=== PATIENT | female | born 1950 | race Caucasian/White ===

== ENCOUNTER 2025-07-21 12:01 | Outpatient (CLI) | payer MEDICARE, SELFPAY ==
--- NOTE | 2025-07-21 12:30 | ECG_ITS ---
Test Date: 2025-07-21 12:14:40 Measurements Intervals [place] Rate: 87 P: 76 DC: 182 QRS: 21 QRSD: 97 T: 66 QT: 348 QTc: 419 Interpretive Statements SINUS RHYTHM No previous ECG available for comparison Electronically Signed On 07-21-2025 13:23:46 SKIN CARE SPECIALIST by Cristobal Pascual M.D.
--- OUTSIDE RECORDS SUMMARY | 2025-07-21 13:24 | XMS_ITS | Encounter Summary ---
Author Organization [facility] Care Team Providers Care Grout Machine Tender Name Role Phone Pk Melendez MD Primary Care Provider [phone] Encounter Details Date Type Department Care Team (Latest Contact Info) Description 05/17/2018 Orders Only [facility] CLINCONV ProviderBrandon MD [address] [place] [id number] Social History Tobacco Use Types Packs/Day Years Used Date Smoking Tobacco: Never Assessed Comments Unknown Sex and Gender Information Value Date Recorded Sex Assigned at Not on file Legal Sex Female 7:15 PM CDT Gender Identity Not on file Sexual Orientation Not on file documented as of this encounter Functional Status documented as of this encounter Plan of Treatment Not on file documented as of this encounter Procedures Procedure Name Priority Date/Time Associated Diagnosis Comments SCAN - LABS 05/22/2018 12:00 AM CDT documented in this encounter Results * SCAN - LABS (05/22/2018 12:00 AM CDT) Narrative 05/22/2018 12:00 AM CDT Ordered by an unspecified provider. 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
--- OUTSIDE RECORDS SUMMARY | 2025-07-21 13:24 | XMS_ITS | Encounter Summary ---
Author Organization [facility] Care Team Providers Care Elementary Education Teacher Name Role Phone Pk Melendez MD Primary Care Provider [phone] Encounter Details Date Type Department Care Team (Latest Contact Info) Description 09/19/2017 Orders Only [facility] CLINCONV ProviderBrandon MD [address] [place] [id number] Social History Tobacco Use Types Packs/Day Years Used Date Smoking Tobacco: Never Assessed Comments Unknown Sex and Gender Information Value Date Recorded Sex Assigned at Not on file Legal Sex Female 7:15 PM CDT Gender Identity Not on file Sexual Orientation Not on file documented as of this encounter Plan of Treatment Not on file documented as of this encounter Procedures Procedure Name Priority Date/Time Associated Diagnosis Comments SCAN - LABS 09/26/2017 12:00 AM BUSINESS RELATIONS MANAGER documented in this encounter Results * SCAN - LABS (09/26/2017 12:00 AM BUSINESS RELATIONS MANAGER) Narrative 09/26/2017 12:00 AM BUSINESS RELATIONS MANAGER Ordered by an unspecified provider. us Historical Provider Final Res ult documented in this encounter Visit Diagnoses Not on filedocumented in this encounter Additional Health Concerns Infection Onset Date Last Indicated Resolved Time COVID: Suspected 10/16/2022 10/16/2022 10/16/2022 2:17 PM BUSINESS RELATIONS MANAGER documented as of this encounter Care Teams Elementary Education Teacher Relationship Specialty Start Date End Date Pk Melendez MD [address] [place] [id number] PCP - General Internal Medicine 11/29/18 documented as of this encounter
--- OUTSIDE RECORDS SUMMARY | 2025-07-21 13:24 | XMS_ITS | Clinical Summary ---
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 before breakfast Active ergocalciferol, vitamin D2, (VITAMIN D2 ORAL) Take by mouth Active albuterol HFA (PROVENTIL HFA,VENTOLIN HFA,PROAIR HFA) 90 mcg/actuation inhaler Inhale 2 puffs every 6 (six) hours as needed for wheezing 1 each 3 4 Active mirtazapine (REMERON) 15 mg tablet Take 1 tablet (15 mg total) by mouth nightly 30 tablet 2 4 Active lisinopriL (PRINIVIL,ZESTRI L) 10 mg tablet Take 1 tablet by mouth once daily 90 tablet 5 Active ipratropium-albu teroL (DUO-NEB) 0.5-2.5 mg/3 mL nebulizer solutionIndicati ons:Chronic obstructive pulmonary disease, unspecified COPD type (HCC) USE 1 AMPULE IN NEBULIZER EVERY 6 HOURS 360 mL 5 5 Active hydrocortisone (ANUSOL-HC) 2.5 % rectal cream Insert into the rectum 4 (four) times a day as needed for hemorrhoids (rectal discomfort) Apply to affected areas 30 g 1 5 Active hydrOXYzine (VISTARIL) 25 mg capsule Take 1 capsule by mouth once daily 100 capsule 1 5 Active Active Problems Problem Noted Date Diagnosed Date Internal hemorrhoid 06/10/2025 Assessment & Plan (06/10/2025 11:42 AM CDT): Patient with chronic painful internal hemorrhoids. Will start her on Anusol cream 3-4 times daily PRN and will make a referral to see a general surgeon for further evaluation Lung cancer screening declined by patient 2023 Assessment & Plan (06/10/2025 7:14 AM CDT): Patient is due for lung cancer screening. Patient declined. She understands risks including cancer. Assessment & Plan (02/10/2025 10:21 AM CDT): Patient is due for lung cancer screening. Patient declined. She understands risks including cancer. Assessment & Plan (10/14/2024 7:33 AM MATRIX PLATER): Patient is due for lung cancer screening. Patient declined. She understands risks including cancer. Assessment & Plan (04/06/2024 7:30 AM CDT): Patient is due for lung cancer screening. Patient declined. She understands risks including cancer. Assessment & Plan (12/04/2023 10:27 AM CDT): Patient is due for lung cancer screening. Patient declined. She understands risks including cancer. Primary insomnia 05/02/2023 Assessment & Plan (10/14/2024 11:59 AM MATRIX PLATER): Controlled on Remeron Assessment & Plan (06/25/2024 10:52 AM CDT): Patient with primary insomnia. Patient has difficulty sleeping at night. She takes naps in the daytime. We discussed the importance of sleep hygiene and avoid naps in the daytime. Advised to avoid caffeine. Advised to avoid food late at night. Will start her on Remeron 15 mg q.h.s.. Assessment & Plan (05/02/2023 12:31 PM CDT): Patient takes hydroxyzine with good results. Panic disorder 03/28/2023 Assessment & Plan (03/28/2023 12:52 PM CDT): Panic disorder d/t extreme grief. Xanax 0.25 prn ordered. Pt provided resources for senior counseling services. Pt denies SI/HI Grief 03/28/2023 Assessment & Plan (03/28/2023 12:53 PM CDT): Severe grief since passing of her . Educated on need for counseling. Provided resources. Acute bronchitis 01/24/2023 Assessment & Plan (01/24/2023 11:42 AM CDT): Patient with acute bronchitis on top of COPD. We will start her on doxycycline 100 mg b.i.d. for 10 days and Medrol Dosepak. She received Kenalog 40 mg IM. Patient will continue to use nebulizer treatment. Senile osteoporosis 01/23/2023 Assessment & Plan (10/14/2024 7:33 AM MATRIX PLATER): Patient declined to take medications. Advised to take calcium and vitamin-D daily Assessment & Plan (04/06/2024 7:30 AM CDT): Patient declined to take medications. Advised to take calcium and vitamin-D daily Assessment & Plan (12/04/2023 7:58 AM CDT): Patient declined to take medications. Advised to take calcium and vitamin-D daily Assessment & Plan (08/05/2023 7:58 AM MATRIX PLATER): Patient declined to take medications. Advised to take calcium and vitamin-D daily Assessment & Plan (05/02/2023 12:30 PM CDT): The patient stopped Fosamax. She does not want to take any medications for osteoporosis. She understand that she is at high risk for fracture. She understands that it is her responsibility to follow the instructions. She was advised to take calcium 500 mg daily and vitamin-D 2000 units daily. Assessment & Plan (01/24/2023 11:42 AM CDT): Continue Fosamax weekly with calcium and vitamin-D daily Colon cancer screening 09/17/2022 Assessment & Plan (04/06/2024 7:30 AM CDT): Colonoscopy in April 2021 showed internal hemorrhoids status post ligation and repeat colonoscopy in 5 years. Procedure was performed by Dr. Celeste Assessment & Plan (09/17/2022 8:10 AM MATRIX PLATER): Colonoscopy in April 2021 showed internal hemorrhoids status post ligation and repeat colonoscopy in 5 years. Procedure was performed by Dr. Celeste Chronic right shoulder pain 09/17/2022 Assessment & Plan (09/17/2022 12:36 PM MATRIX PLATER): Patient with persistent right shoulder pain for the last 3 months. She has limited range of motion in all directions. It is possible that she has frozen shoulder. Will make a referral to see orthopedic doctor. She does not want pain medications and does not want physical therapy. Screening for lung cancer 09/17/2022 Assessment & Plan (12/04/2023 10:27 AM CDT): Lung scan in July 2023 showed pulmonary nodules. Patient is due for repeated lung scan but she declined and she understands risks including cancer Assessment & Plan (09/17/2022 12:37 PM MATRIX PLATER): Patient has an appointment for CT lung screen BMI 21.0-21.9, adult 04/18/2021 Rectal bleeding 03/23/2021 Assessment & Plan (03/23/2021 3:00 PM CDT): Patient will try preparation H for possible hemorrhoids and we made her a referral to see a human anatomy teacher and she was advised strongly to keep her follow-up appointment for further evaluation and colonoscopy Preoperative clearance 12/22/2020 Assessment & Plan (12/22/2020 5:08 PM CDT): Patient is cleared for cataract extraction Tobacco use 06/27/2020 Assessment & Plan (06/10/2025 7:14 AM CDT): Discussed smoking cessation and different methods to help with that. Discussed the risks of smoking including COPD, CAD and lung cancer etc. Total time spent was 5 minutes. Assessment & Plan (02/10/2025 7:32 AM CDT): Discussed smoking cessation and different methods to help with that. Discussed the risks of smoking including COPD, CAD and lung cancer etc. Total time spent was 5 minutes. Assessment & Plan (10/14/2024 7:33 AM MATRIX PLATER): Discussed smoking cessation and different methods to help with that. Discussed the risks of smoking including COPD, CAD and lung cancer etc. Total time spent was 5 minutes. Assessment & Plan (04/06/2024 7:30 AM CDT): Discussed smoking cessation and different methods to help with that. Discussed the risks of smoking including COPD, CAD and lung cancer etc. Total time spent was 5 minutes. Assessment & Plan (12/04/2023 7:58 AM CDT): Discussed smoking cessation and different methods to help with that. Discussed the risks of smoking including COPD, CAD and lung cancer etc. Total time spent was 5 minutes. Assessment & Plan (08/05/2023 7:56 AM MATRIX PLATER): Discussed smoking cessation and different methods to help with that. Discussed the risks of smoking including COPD, CAD and lung cancer etc. Total time spent was 3 minutes. Assessment & Plan (05/02/2023 12:30 PM CDT): Discussed smoking cessation and different methods to help with that. Discussed the risks of smoking including COPD, CAD and lung cancer etc. Total time spent was 3 minutes. Assessment & Plan (01/24/2023 11:43 AM CDT): Patient said that she smokes 10 cigarettes daily. Discussed the importance of complete smoking cessation. She understands risks including COPD and lung cancer etc.. Patient is not interested in medications at this time. Assessment & Plan (09/17/2022 8:09 AM MATRIX PLATER): Discussed smoking cessation and different methods to help with that. Discussed the risks of smoking including COPD, CAD and lung cancer etc. Total time spent was 3 minutes. Assessment & Plan (01/17/2022 11:47 AM CDT): Discussed smoking cessation and different methods to help with that. Discussed the risks of smoking including COPD, CAD and lung cancer etc. Total time spent was 3 minutes. Assessment & Plan (10/18/2021 11:52 AM MATRIX PLATER): Discussed smoking cessation and different methods to help with that. Discussed the risks of smoking including COPD, CAD and lung cancer etc. Total time spent was 4 minutes. Assessment & Plan (06/22/2021 1:26 PM CDT): Discussed smoking cessation and different methods to help with that. Discussed the risks of smoking including COPD, CAD and lung cancer etc. Total time spent was 3 minutes. Assessment & Plan (03/23/2021 2:59 PM CDT): Discussed smoking cessation and different methods to help with that. Discussed the risks of smoking including COPD, CAD and lung cancer etc. patient does not want to try medications. Total time spent was 3 minutes. Assessment & Plan (12/22/2020 5:07 PM CDT): Discussed smoking cessation and different methods to help with that. Discussed the risks of smoking including COPD, CAD and lung cancer etc. Total time spent was 4 minutes. Assessment & Plan (06/27/2020 2:34 PM CDT): Discussed smoking cessation and different methods to help with that. Discussed the risks of smoking including COPD, CAD and lung cancer etc. Total time spent was 4 minutes. Personal history of nicotine dependence 06/11/20 19 Assessment & Plan (06/11/2019 4:11 PM CDT): Discussed smoking cessation and different methods to help with that. Discussed the risks of smoking including COPD, CAD and lung cancer etc. Total time spent was [address] lung screen with low-dose iodine and we discussed the benefits and the risk of the procedure. The patient smokes 1-2 packs daily for over 40 years. Patient likes to proceed with the test. Acute deep vein thrombosis ( DVT) of distal vein of right lower extremity 03/11/2019 Assessment & Plan (06/11/2019 4:09 PM CDT): The patient has DVT after right hip fracture about 3 months ago. She is on Xarelto for 3 months. The patient is ambulatory and she is asymptomatic with no leg pain or swelling. The patient can stop Xarelto and she was advised to stay active and ambulate on regular basis. The patient to call for leg pain or swelling. Assessment & Plan (03/11/2019 1:42 PM CDT): The patient with acute DVT of the right leg after recent surgery. She will continue Xarelto for about 3 months and we will start her on Xarelto 20 mg daily after she is done with the starter dose of 15 mg twice a day for 21 days Closed fracture of right hip with routine healin g 03/11/2019 Assessment & Plan (03/11/2019 1:42 PM CDT): Status post open reduction and external rotation Uncomplicated alcohol dependence 05/22/2018 Assessment & Plan (02/10/2025 7:32 AM CDT): Patient said that she quit drinking alcohol in February 2022 Assessment & Plan (05/21/2022 11:12 AM CDT): Patient said that she quit drinking alcohol in February 2022 Assessment & Plan (01/17/2022 11:46 AM CDT): Patient cut down on drinking alcohol significantly. She said she drinks 1 or 2 beers daily. Discussed complete cessation. Discussed programs to help with alcohol cessation Assessment & Plan (10/18/2021 11:52 AM MATRIX PLATER): Discussed complete cessation Assessment & Plan (06/22/2021 1:26 PM CDT): Discussed alcohol abstinence and different methods to help with that. The patient was advised to seek help from AA and other alcohol abstinence programs. The patient understands the risks of alcoholism including liver disease and cancer etc. Assessment & Plan (03/23/2021 2:58 PM CDT): Discussed alcohol abstinence and different methods to help with that. The patient was advised to seek help from AA and other alcohol abstinence programs. The patient understands the risks of alcoholism including liver disease and cancer etc. Assessment & Plan (06/27/2020 2:34 PM CDT): Patient drinks alcohol on occasional basis Assessment & Plan (06/11/2019 4:07 PM CDT): The patient said that she drinks beer on occasional basis Assessment & Plan (03/11/2019 1:40 PM CDT): The patient stated that she does not drink alcohol any more Pulmonary nodule, right 05/22/2018 Assessment & Plan (08/05/2023 7:59 AM MATRIX PLATER): Lung scan in July 2023 he is not changed from previous scan and repeat in 6 months Assessment & Plan (05/02/2023 12:30 PM CDT): Lung scan in April 2023 showed persistent right pulmonary nodule. Will repeat the scan in 3 months Assessment & Plan (01/24/2023 11:42 AM CDT): CT of the lungs in January 2023 showed 8 mm pulmonary nodule and will repeat CT in 3 months Assessment & Plan (09/17/2022 12:38 PM MATRIX PLATER): CT in June 2021 showed no change in pulmonary nodule and she has an appointment for repeated lung screen Assessment & Plan (05/21/2022 11:12 AM CDT): Repeat CT lung screen Assessment & Plan (01/17/2022 11:46 AM CDT): Stable pulmonary nodule on CT in June 2021 Assessment & Plan (10/18/2021 11:52 AM MATRIX PLATER): Stable pulmonary nodule on CT lung screen in June 2021 and repeat on annual basis Assessment & Plan (06/22/2021 1:27 PM CDT): Patient will have repeated CT lung screen in June 2021 Assessment & Plan (03/23/2021 2:58 PM CDT): Stable pulmonary nodule on CT lung screen in June 2020 Assessment & Plan (06/27/2020 2:33 PM CDT): CT lung screen in June 2020 showed moderate emphysema and no change in pulmonary nodule Assessment & Plan (03/10/2020 10:48 AM CDT): CT lung screen in June 2019 showed pulmonary nodule and she needs repeated test in June 2020. Discussed with the patient Assessment & Plan (10/06/2019 12:15 PM MATRIX PLATER): CT lung screen in June 2019 showed pulmonary nodules and will repeat the test in 1 year Assessment & Plan (03/11/2019 1:41 PM CDT): The patient has pulmonary nodule and we will continue to monitor with CT scan of the lungs Acute systolic congestive heart failure 05/22/20 18 COPD exacerbation 05/22/2018 Current mild episode of tania r depressive disorder without prior episode 08/13/2017 Assessment & Plan (02/10/2025 7:31 AM CDT): Stable without medications Assessment & Plan (04/06/2024 7:30 AM CDT): Stable without medications Assessment & Plan (09/17/2022 8:08 AM MATRIX PLATER): Stable without medications Assessment & Plan (01/17/2022 11:46 AM CDT): Patient is in remission and stable without medications Assessment & Plan (03/23/2021 2:59 PM CDT): Patient is in remission and stable without medications Assessment & Plan (03/10/2020 10:47 AM CDT): Stable without medications Assessment & Plan (10/06/2019 12:14 PM MATRIX PLATER): Stable without medications and she takes Xanax as needed for anxiety Assessment & Plan (06/11/2019 4:07 PM CDT): Stable without medications Assessment & Plan (03/11/2019 1:41 PM CDT): The patient does not take medications and she denied depression or suicidal ideations RLS (restless legs syndrome) 04/16/2017 Assessment & Plan (02/10/2025 7:31 AM CDT): Asymptomatic and stable without medications Assessment & Plan (10/14/2024 7:33 AM MATRIX PLATER): Asymptomatic and stable without medications Assessment & Plan (01/17/2022 11:46 AM CDT): Asymptomatic and stable without medications Assessment & Plan (10/18/2021 11:52 AM MATRIX PLATER): Asymptomatic Assessment & Plan (06/27/2020 1:17 PM CDT): Asymptomatic Assessment & Plan (06/11/2019 4:07 PM CDT): Stable without medications Osteoarthritis of knee 04/16/2017 Hypertension, essential 04/16/2017 Assessment & Plan (06/10/2025 7:14 AM CDT): Continue current medications. Discussed low-salt diet. Discussed exercise on regular basis. Will continue to monitor Assessment & Plan (02/10/2025 7:31 AM CDT): Continue current medications. Discussed low-salt diet. Discussed exercise on regular basis. Will continue to monitor Assessment & Plan (10/14/2024 7:33 AM MATRIX PLATER): Continue current medications. Discussed low-salt diet. Discussed exercise on regular basis. Will continue to monitor Assessment & Plan (06/25/2024 10:52 AM CDT): Continue current medications. Discussed low-salt diet. Discussed exercise on regular basis. Will continue to monitor Assessment & Plan (04/06/2024 7:30 AM CDT): Continue current medications. Discussed low-salt diet. Discussed exercise on regular basis. Will continue to monitor Assessment & Plan (12/04/2023 7:58 AM CDT): Continue current medications. Discussed low-salt diet. Discussed exercise on regular basis. Will continue to monitor Assessment & Plan (08/05/2023 7:59 AM MATRIX PLATER): Continue current medications. Discussed low-salt diet. Discussed exercise on regular basis. Will continue to monitor Assessment & Plan (05/02/2023 12:31 PM CDT): Continue current medications. Discussed low-salt diet. Discussed exercise on regular basis. Will continue to monitor Assessment & Plan (09/17/2022 8:08 AM MATRIX PLATER): Continue current medications. Discussed low-salt diet. Discussed exercise on regular basis. Will continue to monitor Assessment & Plan (05/21/2022 11:15 AM CDT): Continue current medications. Discussed low-salt diet. Discussed exercise on regular basis. Will continue to monitor Assessment & Plan (01/17/2022 11:46 AM CDT): Continue current medications. Discussed low-salt diet. Discussed exercise on regular basis. Will continue to monitor Assessment & Plan (10/18/2021 11:52 AM MATRIX PLATER): Continue current medications. Discussed low-salt diet. Discussed exercise on regular basis. Will continue to monitor Assessment & Plan (06/22/2021 1:26 PM CDT): Continue current medications. Discussed low-salt diet. Discussed exercise on regular basis. Will continue to monitor Assessment & Plan (03/23/2021 2:58 PM CDT): Continue current medications. Discussed low-salt diet. Discussed exercise on regular basis. Will continue to monitor Assessment & Plan (12/22/2020 5:08 PM CDT): Continue current medications. Discussed low-salt diet. Discussed exercise on regular basis. Will continue to monitor Assessment & Plan (06/27/2020 2:33 PM CDT): Continue current medications. Discussed low-salt diet. Discussed exercise on regular basis. Will continue to monitor Assessment & Plan (03/10/2020 10:47 AM CDT): Continue current medications. Discussed low-salt diet. Discussed exercise on regular basis. Will continue to monitor Assessment & Plan (10/06/2019 12:14 PM MATRIX PLATER): Continue current medications. Discussed low-salt diet. Discussed exercise on regular basis. Will continue to monitor Assessment & Plan (06/11/2019 4:07 PM CDT): Continue current medications. Discussed low-salt diet. Discussed exercise on regular basis. Will continue to monitor Assessment & Plan (03/11/2019 1:41 PM CDT): Continue current medications. Discussed low-salt diet. Discussed exercise on regular basis. Will continue to monitor COPD (chronic obstructive pulmonary disease) 04/2017 Assessment & Plan (06/10/2025 7:13 AM CDT): Continue nebulizer treatment p.r.n. Assessment & Plan (02/10/2025 7:31 AM CDT): Continue nebulizer treatment p.r.n. Assessment & Plan (06/25/2024 10:51 AM CDT): Continue nebulizer treatment p.r.n. Assessment & Plan (04/06/2024 7:30 AM CDT): Continue nebulizer treatment p.r.n. Assessment & Plan (12/04/2023 7:59 AM CDT): Continue nebulizer treatment p.r.n. Assessment & Plan (08/05/2023 7:59 AM MATRIX PLATER): Continue nebulizer treatment p.r.n. Assessment & Plan (06/27/2023 4:29 PM CDT): Continue nebulizer treatment p.r.n. Assessment & Plan (05/02/2023 12:31 PM CDT): Patient declined inhalers because of cost. She uses nebulizer treatment in the form of albuterol and Atrovent as needed Assessment & Plan (01/24/2023 11:42 AM CDT): Patient declined inhalers because of cost. She uses nebulizer treatment in the form of albuterol and Atrovent as needed Assessment & Plan (10/16/2022 3:09 PM MATRIX PLATER): Patient with COPD exacerbation. We discussed the importance of complete smoking cessation. She smokes currently 10 cigarettes daily. Continue nebulizer treatment 4 times daily. Will start her on doxycycline 100 mg b.i.d. for 7 days and Medrol Dosepak and Benzonate 200 mg 3 times daily p.r.n.. Call for persistent symptoms Assessment & Plan (09/17/2022 8:08 AM MATRIX PLATER): Continue albuterol and ipratropium nebulizer treatment as needed Assessment & Plan (05/21/2022 11:12 AM CDT): Patient uses Atrovent and albuterol nebulizer as needed with good relief Assessment & Plan (01/17/2022 11:46 AM CDT): Continue nebulizer treatment as needed Assessment & Plan (10/18/2021 11:53 AM MATRIX PLATER): The patient uses albuterol and Atrovent nebulizer treatment as needed Assessment & Plan (06/22/2021 1:26 PM CDT): Asymptomatic Assessment & Plan (03/23/2021 2:59 PM CDT): Patient uses DuoNeb on as needed basis Assessment & Plan (12/22/2020 5:07 PM CDT): Asymptomatic Assessment & Plan (06/27/2020 4:17 PM CDT): The patient will receive nebulizer treatment now. She will continue with the nebulizer treatment 4 times daily as needed. She received 40 mg Kenalog IM. We discussed smoking cessation again. After nebulizer treatment patient felt better and lung examination was clear Assessment & Plan (03/10/2020 10:48 AM CDT): Continue Atrovent and albuterol nebulizer p.r.n. Assessment & Plan (10/06/2019 12:14 PM MATRIX PLATER): Continue nebulizer treatment as needed Assessment & Plan (06/11/2019 4:08 PM CDT): We will add Trelegy 1 puff daily and patient was advised to rinse her mouth after each use. Will continue to monitor with next visit Assessment & Plan (03/11/2019 1:41 PM CDT): The patient uses duo nebulizer treatment on as needed basis Anxiety 04/16/2017 Assessment & Plan (06/10/2025 7:13 AM CDT): Controlled on Vistaril Assessment & Plan (10/14/2024 7:33 AM MATRIX PLATER): Controlled on Vistaril Assessment & Plan (06/25/2024 10:51 AM CDT): Controlled on Vistaril Assessment & Plan (04/06/2024 10:27 AM CDT): Patient takes hydroxyzine and Xanax p.r.n. with good results Assessment & Plan (12/04/2023 7:57 AM CDT): Patient takes hydroxyzine and Xanax p.r.n. with good results Assessment & Plan (08/05/2023 10:24 AM MATRIX PLATER): Patient stopped Celexa because of nausea. Patient said that she does not need this medication. She continues to take hydroxyzine and Xanax as needed Assessment & Plan (06/27/2023 4:29 PM CDT): Patient with increased anxiety and panic attacks after the passing of her . She is maintained on hydroxyzine and alprazolam. I recommended that she seeks counseling. Will start her on Celexa 20 mg daily. Will evaluate her again in 1 month. Assessment & Plan (05/02/2023 12:29 PM CDT): Patient is on Xanax p.r.n.. She could not tolerate other medications like Paxil or Lexapro. She refused to try other medications. Assessment & Plan (05/21/2022 11:12 AM CDT): Controlled on hydroxyzine Assessment & Plan (01/17/2022 11:47 AM CDT): Controlled on hydroxyzine Assessment & Plan (10/18/2021 11:53 AM MATRIX PLATER): Controlled on Atarax daily Assessment & Plan (06/22/2021 1:26 PM CDT): Patient will take hydroxyzine on as needed basis. She has good relief with that Assessment & Plan (03/23/2021 2:59 PM CDT): Controlled on Xanax p.r.n. Assessment & Plan (12/22/2020 5:07 PM CDT): Controlled on Xanax p.r.n. Assessment & Plan (06/27/2020 2:32 PM CDT): The patient said that she has panic attack today but usually she does not have anxiety attacks. She is not on medications at this time. Assessment & Plan (03/10/2020 10:48 AM CDT): Stable without medications Assessment & Plan (10/06/2019 12:14 PM MATRIX PLATER): Continue Xanax as needed Assessment & Plan (06/11/2019 4:08 PM CDT): Continue alprazolam p.r.n. Pain in thoracic spine 04/16/2017 Other chronic pain 04/16/2017 Resolved Problems Problem Noted Date Diagnosed Date Resolved Date Poison lance 04/18/2021 05/21/2022 Encounters Date Type Department Care Team Description 07/07/2025 Telephone [facility] Medical [facility] Internal Medicine [address] [place] [address] [place] [id number] Pk Melendez MD Medical Question/Miscellaneous (General Surgery Referral) 06/10/2025 9:15 AM CDT Office Visit [facility] Internal Medicine [address] [place] [address] [address] [place] [phone] Pk Melendez MD Simple chronic bronchitis (HCC) (Primary Dx); Lung cancer screening declined by patient; Hypertension, essential; Anxiety; Tobacco use; Internal hemorrhoid; Encounter for immunization from Last 3 Months Immunizations Immunization Administration Dates Next Due Influenza, Quadrivalent, Hig h Dose, Preservative Free, Intrr 06/21/2023,06/28/2022,06/22/2021,06/27 Influenza, Trivalent, High D ose, Split, Preservative Free, Intramuscular 06/10/2025,06/16/2024,06/11/2019 Pfizer SARS-CoV-2 Monovalent Vaccination (12+ Yrs) PURPLE 01/19/2022,11/27/2020,11/04/2020 Pneumococcal Conjugate PCV 13 05/30/2018 Pneumococcal Conjugate Pcv20 06/21/2023 Pneumococcal Polysaccharide PPV23 05/14/2017 Surgical History Surgery Date Site/Laterality Comments HIP FRACTURE SURGERY 11/07/2018 - 12/07/2018 Right CATARACT EXTRACTION, BILATERAL 09/09/2020 - 09/08/2021 Medical History Medical History Date Comments Anxiety COPD (chronic obstructive pulmonary disease) OA (osteoarthritis) of knee HTN (hypertension) RLS (restless legs syndrome) CHF (congestive heart failure) (HCC) Depression Family History Medical History Relation Name Comments Parkinsonism Father Heart disease Mother Breast cancer Neg Hx Relation Name Status Comments Father Mother Social History Tobacco Use Types Packs/Day Years Used Date Smoking Tobacco: Every Day Cigarettes 1 56.9 Started: 1968 Passive Smoke Exposure: Current Smokeless Tobacco: Never Tobacco Cessation:Ready to Q uit: Not Asked; Counseling Given: Not Answered Comments:1/2 pack daily x 1 1/2 months Alcohol Use Standard Drinks/Week Comments Yes 0 (1 standard drink = 0.6 oz pur e alcohol) AUDIT-C Answer Date Recorded Q1: How often do you have a drink containing alcohol? Never 02/10/2025 Q2: How many drinks containi ng alcohol do you have on a typical day when you are drinking? Patient does not drink Q3: How often do you have si x or more drinks on one occasion? Never 02/10/2025 PHQ-2 Answer Date Recorded PHQ-2 Total Score (If total score is 3 or more points, staff should administer the PHQ-9) 0 10/14/2024 Comments No Sex and Gender Information Value Date Recorded Sex Assigned at Not on file Legal Sex Female 7:15 PM CDT Gender Identity Not on file Sexual Orientation Not on file Obstetrics History Para Term AB IAB SAB Ectopic Multiple Livin g Live Births 3 3 3 Date Outcome GA Total Labor Labor/2nd/3rd Weight Sex Type Anes PTL Dedra A1 A5 Name Clin Term Term Term Last Filed Vital Signs Vital Sign Reading Time Taken Comments Blood Pressure 122/68 06/10/2025 8:55 AM CDT Pulse 91 06/10/2025 8:55 AM CDT Temperature 36.6 C (97.9 F) 06/10/2025 8:55 AM CDT Respiratory Rate 16 06/10/2025 8:55 AM CDT Oxygen Saturation 96% 06/10/2025 8:55 AM CDT Inhaled Oxygen Concentration - - Weight 52.9 kg (116 lb 9.6 oz) 06/10/2025 8:55 A M CDT Height 162.6 cm (5' 4) 06/10/2025 8:55 AM CDT Body Mass Index 20.01 06/10/2025 8:55 AM CDT Plan of Treatment Health Maintenance Due Date Last Done Comments Hepatitis B Screening 1968 Well Visit 65+ 2014 Covid-19 Vaccine (2024-10 6 season) 2025 01/19/2022, 01/19/2022, 06/21/2021, Additional history exists Depression Screening 10/14/2025 10/14/2024, 06/25/2024, 04/06/2024, Additional history exists Fall Risk Assessment 10/14/2025 10/14/2024, 06/25/2024, 04/06/2024, Additional history exists Colon Cancer Screening-Colonoscopy 05/01/2026 05/01/2021 Colon Cancer Screening-CT Colonography Discontinued 05/01/2021 Colon Cancer Screening-Sigmoidoscopy Discontinued 05/01/2021 Colon Cancer Screening-DNA Stool Discontinued 05/02/2021, 05/01/2021, 09/09/2018 Colon Cancer Screening-FIT Discontinued 05/02, 05/01/2021, 09/09/2018 Osteoporosis Screening-Bone Density Scan Discontinued 01/23/2022 Pneumococcal vaccine 65+ Completed 023, 05/30/2018, 05/14/2017 Lung Cancer Screening Discontinued 08/03/2023 , 04/25/2023, 01/21/2023, Additional history exists Breast Cancer Screening-Mammogram Discontinued 12/26/2023, 01/23/2022, 05/10/2018, Additional history exists Hepatitis C Screening Completed 12/26/2023 Influenza Vaccine Completed 06/10/2025, , 06/21/2023, Additional history exists DTaP/Tdap/Td Vaccine Discontinued Zoster Vaccine Discontinued Procedures Procedure Name Priority Date/Time Associated Diagnosis Comments HEPATITIS C ANTIBODY Routine 12/26/2023 8:15 AM CDT Encounter for hepatitis C screening test for low risk patient SCREENING MAMMOGRAM BILATERAL W DANE Schedule Routine, Read Routine (OP Routine) 12/26/2023 7:48 AM CDT Breast cancer screening by mammogram CT CHEST WO CONTRAST F/U LUNG SCREEN PROTOCOL Schedule Routine, Read Routine (OP Routine) 08/03/2023 10:49 AM MATRIX PLATER Pulmonary nodule HM DEXA SCAN Routine 01/23/2022 COLONOSCOPY Routine 05/01/2021 from Last 3 Months or Most Recently Relevant to Health Maintenance Results * Hepatitis C antibody Blood (12/26/2023 8:15 AM CDT) Hep C Ab Nonreactive Nonreactive Comment: Antibodies to HCV not detected. Does NOT exclude the possibility of recent exposure to HCV. Current interpretive data was last revised on 22 Interpretive Data Nonreactive: Antibodies to HCV not detected. Does NOT exclude the possibility of recent exposure to HCV. Equivocal: Equivocal for HCV antibodies. Supplemental molecular testing will be automatically performed to determine infection status in accordance with current CDC screening recommendations. Reactive: Positive for HCV antibodies. This may represent current or past HCV infection. Supplemental molecular testing will be automatically performed to determine current infection status in accordance with current CDC screening recommendations. Interpretive data was last revised on 2019. Blood 12/26/2023 8:15 AM CDT 12/26/2023 12:46 PM CDT us Pk Melendez MD LAB MICROBIOLOGY - GENERAL ORDERABLES Final Result [facility] [address] [facility] Department [place] [address] * Screening Mammogram Bilateral W Dane (12/26/2023 7:48 AM CDT) Anatomical Region Laterality Modality Breast Bilateral Mammography Impressions 12/26/2023 8:50 AM CDT BI-RADS ATLAS category (overall): 1 - Negative There is no mammographic evidence of malignancy on limited assessment (see above). A 1 year screening mammogram is recommended. The patient has been or will be contacted. We recommend annual screening mammography for women at average risk of breast cancer beginning at age 40, based on guidelines of the [employer] (ACR Practice Parameter for the Performance of Screening and Diagnostic Mammography) and [employer]. For women with and elevated risk of breast cancer, please refer to the ACR Practice Parameter for specific screening recommendations. The patient will be entered into a reminder system with a target due date of 1 year for her next screening exam. Narrative 12/26/2023 8:50 AM CDT Screening Mammogram Bilateral W Dane: 12/26/23 The study was acquired using full field digital technology and interpreted from soft copy. 2D digital mammographic views, as well as 3D digital tomosynthesis were performed in the CC and MLO projections. CLINICAL: Breast cancer screening by mammogram. No relevant medical history has been documented for this patient. History of breast cancer in Neg Hx. COMPARISONS: 05/13/2018 Screening Mammogram Bilateral W Dane 05/03/2017 Screening Mammogram Bilateral W Dane BREAST TISSUE: The breasts are extremely dense, which lowers the sensitivity of mammography. FINDINGS: Suboptimal examination secondary to difficulty with patient positioning related to the patient's physical condition (kyphosis) and intolerance of compression. Within these limitations, no suspicious masses, suspicious calcifications, or other suspicious findings are seen within either breast. There has been no definite suspicious change on mammogram. Pk Melendez MD IMG MAMMO PROCEDURES Final Result * CT Chest WO Contrast F/U Lung Screen Protocol (08/03/2023 10:49 AM MATRIX PLATER) Anatomical Region Laterality Modality Chest N/A Computed Tomogra phy 08/03/2023 2:23 PM MATRIX PLATER Narrative 08/03/2023 2:33 PM MATRIX PLATER EXAM DESCRIPTION: CT CHEST WO CONTRAST F/U LUNG SCREEN PROTOCOL REASON FOR STUDY: Screening CT of the chest in a current smoker with a 54 pack year smoking history. Additional history: COPD, chronic bronchitis, hypertension, pulmonary nodule follow-up. TECHNIQUE: Low dose CT scan of the chest was performed without intravenous contrast using helical scanning technique. The exam extends from the lung apices through the lung bases. Automatic exposure control was used as a dose optimization technique. NOTE: This study was performed for the specific purposes of lung cancer screening and is not an alternative to diagnostic chest CT. RADIATION DOSE: CT dose index volume (CTDIvol) = 2.02 mGy COMPARISON: CT chest April 25, 2023, January 21, 2023, December 20, 2022 FINDINGS: SMOKING RELATED LUNG DISEASE: Bilateral pleural apical thickening/scarring. Hyperinflation. Moderate/severe emphysema. Bronchiectasis with bronchial wall thickening. LUNG NODULES: Stable right lower lobe spiculated nodule measuring 0.8 cm (series 3, image 233/349), previously 0.8 cm. In the superior segment right lower lobe is a stable noncalcified 0.5 cm pulmonary nodule (series 3, image 120/349). CORONARY ARTERY CALCIFICATION: Moderate. OTHER: Scarring in right middle lobe and lung bases. Pleural-parenchymal scarring in the right upper lobe. No airspace consolidation. No pleural effusion or pneumothorax. Central airways are patent. No cardiomegaly or pericardial effusion. No thoracic aortic aneurysm. No acute abnormality in the visualized upper abdomen. Thoracic vertebral body heights and alignment are intact. No aggressive appearing osseous lesion. IMPRESSION: Stable noncalcified pulmonary nodules unchanged from December 20, 2022 Lung-RADS category 3: Probably benign. Recommendation: Low dose CT of chest in 6 months. THIS IS AN ELECTRONICALLY VERIFIED FINAL REPORT 08/03/2023 2:33 PM - Electronically signed by Richelle Choe D.O. AC T: Report ID: [id number] Reading Location: [id number] Procedure Note Richelle Choe DO - 08/03/2023 EXAM DESCRIPTION: CT CHEST WO CONTRAST F/U LUNG SCREEN PROTOCOL REASON FOR STUDY: Screening CT of the chest in a current smoker with a54 pack year smoking history. Additional history: COPD, chronic bronchitis, hypertension, pulmonary nodule follow-up. TECHNIQUE: Low dose CT scan of the chest was performed without intravenous contrast using helical scanning technique. The exam extends from the lung apices through the lung bases. Automatic exposure control was used as adose optimization technique. NOTE: This study was performed for the specific purposes of lung cancer screening and is not an alternative to diagnostic chest CT. RADIATION DOSE: CT dose index volume (CTDIvol) = 2.02 mGy COMPARISON: CT chest April 25, 2023, January 21, 2023, December 20, 2022 FINDINGS: SMOKING RELATED LUNG DISEASE: Bilateral pleural apical thickening/scarring. Hyperinflation. Moderate/severe emphysema. Bronchiectasis with bronchial wall thickening. LUNG NODULES: Stable right lower lobe spiculated nodule measuring 0.8 cm (series 3, image 233/349), previously 0.8 cm. In the superior segment right lower lobe is a stable noncalcified 0.5 cm pulmonary nodule (series 3, image 120/349). CORONARY ARTERY CALCIFICATION: Moderate. OTHER: Scarring in right middle lobe and lung bases.Pleural-parenchymal scarring in the right upper lobe. No airspace consolidation. No pleural effusion or pneumothorax. Central airways are patent. No cardiomegaly or pericardial effusion. No thoracic aortic aneurysm. No acute abnormality in the visualized upper abdomen. Thoracic vertebral body heights and alignment are intact. No aggressive appearing osseous lesion. IMPRESSION: Stable noncalcified pulmonary nodules unchanged from 2022 Lung-RADS category 3: Probably benign. Recommendation: Low dose CT of chest in 6 months. THIS IS AN ELECTRONICALLY VERIFIED FINAL REPORT 08/03/2023 2:33 PM - Electronically signed by Richelle THORNE T: Report ID: [id number] Reading Location: [place] [id number] Pk Melendez MD [facility] CT PROCEDURES Final Res ult * (ABNORMAL) HM DEXA SCAN (01/23/2022) Scribed HM Deca Scan Abnormal Comment:osteoporosis us Historical Provider HEALTH MAINTENANCE Final Result * Colonoscopy (05/01/2021) Anatomical Region Laterality Modality Other Impressions 05/01/2021 Repeat in 5 years us Historical Provider ENDOSCOPY PROCEDURES Allison l Result from Last 3 Months or Most Recently Relevant to Health Maintenance Insurance [employer] HMO [employer] HMO Care Teams Shell Sieve Operator Relationship Specialty Start Date End Date Pk Melendez MD [id number] [facility] [address] [place] [id number] PCP - General Internal Medicine 11/29/18
--- OUTSIDE RECORDS SUMMARY | 2025-07-21 13:24 | XMS_ITS | Data Portability ---
Author Organization [facility] OFFICE Address [address] [place] [id number] Care Team Providers Care Bilingual Customer Service Name Role Phone JOSÉ LUIS ESPINOSA Primary Care Provider [phone] Assessment No assessment recorded. Plan of Treatment Reminders Order Date Submit Date Provider Last Modified By Organization Details Last Modified Time Details Appointments None recorded. Lab None recorded. Referral None recorded. Procedures None recorded. Surgeries None recorded. Imaging None recorded. Medication Orders Toprol XL 25 mg tablet,ext ended release 2018 019 [facility], [address] [place] [address], [address], 9 12:40:52 lisinopril 10 mg tablet 2018 019 [facility], [address] [place] [address], [address], 9 12:40:53 lisinopril 10 mg tablet 2017 018 [facility] [address], [address] [place] [address], [address], 8 15:47:22 carvedilol 3.125 mg tablet 2017 018 [facility] [address], [address] [place] [address], [address], 9 11:26:54 spironolac tone 25 mg tablet 2017 018 [facility], [address] [place], [address], 9 11:26:16 aspirin 81 mg tablet,del ayed release 2017 018 [facility], [address] [place], [address], 8 15:47:20 Patient TargetsNo targets recorded. Patient Instructions Encounter Date Encounter Id Patient Instructions Last Modified By Organization Details Last Modified Time 08/12/2018 [id number] deciding about using medicines to quit smoking nurbanski Not available 08/12/2018 15:49:55 Quitting Tobacco : Care Instructions nurbanski Not available 08/12/2018 15:49:55 high blood pressure: care instructions nurbanski Not available 08/12/2018 15:49:55 learning about high blood pressure nurbanski Not available 08/12/2018 15:49:55 heart failure: care instructions nurbanski Not available 08/12/2018 15:47:17 learning about heart failure nurbanski Not available 08/12/2018 15:47:17 09/24/2018 [id number] deciding about using medicines to quit smoking nurbanski Not available 09/24/2018 11:41:31 Quitting Tobacco : Care Instructions nurbanski Not available 09/24/2018 11:41:31 acute alcohol intoxication: care instructions nurbanski Not available 09/24/2018 11:41:31 high blood pressure: care instructions nurbanski Not available 09/24/2018 11:41:31 learning about high blood pressure nurbanski Not available 09/24/2018 11:41:31 chronic obstructive pulmonary disease (COPD): care instructions nurbanski Not available 09/24/2018 11:41:31 learning about copd and how to prevent lung infections nurbanski Not available 09/24/2018 11:41:31 heart failure: care instructions nurbanski Not available 09/24/2018 11:41:31 learning about heart failure nurbanski Not available 09/24/2018 11:41:31 10/29/2018 [id number] deciding about using medicines to quit smoking nurbanski Not available 10/29/2018 12:40:48 Quitting Tobacco : Care Instructions nurbanski Not available 10/29/2018 12:40:48 acute alcohol intoxication: care instructions nurbanski Not available 10/29/2018 12:40:48 high blood pressure: care instructions nurbanski Not available 10/29/2018 12:40:48 learning about high blood pressure nurbanski Not available 10/29/2018 12:40:48 chronic obstructive pulmonary disease (COPD): care instructions nurbanski Not available 10/29/2018 12:40:48 learning about copd and how to prevent lung infections nurbanski Not available 10/29/2018 12:40:48 heart failure: care instructions nurbanski Not available 10/29/2018 12:40:48 learning about heart failure nurbanski Not available 10/29/2018 12:40:48 Reason for Referral None Reported. Results Created Date Observation Date Name Description Value Unit Range Abnormal Flag Note LastModifiedBy Organization Detail LastModifiedTime 08/13/20 18 05/16/2018 XR, chest No observ ation record ed. [email or web address] Not Available 2017 10:56:40 08/13/20 18 05/17/2018 elect rocky [email or web address] am No observ ation record ed. [email or web address] Not Available 08/14 19:24:02 08/13/20 18 05/17/2018 , echoc ardio gram No observ ation record ed. [email or web address] Not Available 2017 13:20:02 08/13/20 18 05/17/2018 CT, angio gram, chest , w/wo contr ast No observ ation record ed. [email or web address] Not Available 2017 13:23:50 09/24/19 19 08/29/2018 jocy can cardi olite stres s test (PROC ) No observ ation record ed. [email or web address] Not Available 09/25 17:41:20 10/01/19 19 09/30/2018 , echoc ardio gram No observ ation record ed. [facility] [address], [place], [address], 10/16/2018 08:44:50 Result Notes None recorded. Problems Name Problem SNOMED Code Status Onset Date Resolution Date Notes Provider Name and Address Organization Details Recorded Time Dyspnea 327335280 Active 2017 [place] - [facility] 8 04:39:33 Essential hypertensio n 28137029 [facility] [place] - [facility] 8 04:40:41 Anxiety 89696162 [facility] [place] - [facility] 8 04:40:49 Depressive disorder 50096716 Active 2017 [place] - [facility] 8 04:41:02 Acute respiratory failure 14860872 [facility] [place] - [facility] 8 04:44:08 High troponin I level 442427604 Completed 201708/12/2018 [facility] [place] [facility] 8 15:48:07 Harmful pattern of use of alcohol 55233574 [facility] [place] - [facility] 8 04:44:50 Dyslipidemi a 581138729 Completed 201708/12/2018 [facility] [place] [facility] 8 15:48:00 Chronic obstructive pulmonary disease 98047360 [facility] [place] - [facility] 8 04:45:36 Congestive heart failure 84451681 Active 2017 Jus Garberi [facility], [place] - [facility] 8 15:43:40 Tobacco dependence syndrome 31931255 Active 2017 Jus Quinones [place], [place] - [facility] 8 15:49:22 Dyspnea on exertion 51769513 Active 2017 Jus [place] - [facility] 8 15:50:05 Multiple nodules of lung 780045302 Active 2017 [place] - [facility] 8 10:50:46 Problem Notes None recorded. Procedures Surgical History Date Name Laterality Status Provider Name and Address Organization Details Recorded Time Knee arthroscopy /surgery completed Marcela Victor [facility] Care 08/09/2018 09:29:39 Imaging Results None recorded. Procedure Notes None recorded. Medical Equipment None Reported. Allergies Allergen ID Allergen Name Allergen Category Reaction Reaction Severity Criticality Documentation Date Start Date Code Code System Note Provider Name and Address Organization Details Recorded Time 7132 Product containin g penicilli n (product) medicatio n Not available Not available Not available 08/12/2018 37433 8001 SNOMED Emi Oconnor [place] - [facility] 8 15:04:25 Medications Name Sig Start Date Stop Date Status Note LastModified by Organization Details LastModified Time Toprol XL 25 mg tablet,ex tended release Take 0.5 tablets every day by oral route. 2018 active Not Available Not Available Not Avai lable ipratropi um 0.5 mg-albute rol 3 mg (2.5 mg base)/3 mL nebulizat ion soln 10/29 completed Not Available Not Available Not Available clopidogr el 75 mg tablet Take 1 tablet every day by oral route. 08/12 completed Not Available Not Available Not Available aspirin 81 mg tablet,de layed release Take 1 tablet every day by oral route. 2017 active Not Available Not Available Not Avai lable spironola ctone 25 mg tablet Take 0.5 tablets every day by oral route. 09/24 completed patient not taking per patient Not Available Not Available Not Available carvedilo l 3.125 mg tablet Take 1 tablet twice a day by oral route. 09/24 completed pt does not takr Not Available Not Available Not Available alprazola m 0.25 mg tablet Take 1 tablet every 12 hours by oral route as needed. active Not Available Not Available No t Available lisinopri l 10 mg tablet Take 1 tablet every day by oral route. 2018 active Not Available Not Available Not Avai lable albuterol 90 mcg/actua tion aerosol inhaler Inhale 1 puff every 4 hours by inhalati on route. active Not Available Not Available No t Available Habitrol 14 mg/24 hr daily transderm al patch Apply 1 patch every day by transder mal route. 08/12 completed Not Available Not Available Not Available codeine-g uaifenesi n 08/12 completed Not Available Not Available Not Available hydrochlo rothiazid e 12.5 mg tablet Take 1 tablet as needed by oral route. 08/12 completed Not Available Not Available Not Available Vitals Date Recorded Body height Body mass index (BMI) Body weight Heart rate Respiratory rate Oxygen saturation Oxygen saturation in Arterial blood by Pulse oximetry Systolic And Diastolic Provider Name and Address Organization Details Last Updated DateTime 9 162.56 cm 21.5 kg/m2 58110.0 5 g 53 /min 18 /min 93 % 93 % 120/66 mm[Hg] Kellie Loera [facility] 9 11:02:26 Date Recorded Body height Body mass index (BMI) Body weight Heart rate Oxygen saturation Oxygen saturation in Arterial blood by Pulse oximetry Systolic And Diastolic Provider Name and Address Organization Details Last Updated DateTime 9 162.56 cm 22 kg/m2 63898.8 2 g 78 /min 98 % 98 % 116/80 mm[Hg] Jolly Stkimberly [facility] 9 11:47:09 Date Recorded Body height Body mass index (BMI) Body weight Heart rate Oxygen saturation Oxygen saturation in Arterial blood by Pulse oximetry Systolic And Diastolic Provider Name and Address Organization Details Last Updated DateTime 8 162.56 cm 21.6 kg/m2 41263.6 4 g 87 /min 96 % 96 % 126/80 mm[Hg] Emi Oconnor [facility] 8 15:00:38 Social History Question Answer Notes LastModified by Organizat ion Details LastModified Time Tobacco Smoking Status Current Every Day Smoker Not Available [facility] 07/12/2020 03:30:41 What Is Your Level Of Caffeine Consumption? Moderate [id number] Information not available 07/12/2020 How Much Tobacco Do You Chew? None [id number] Information not available 07/12/2020 What Type Of Diet Are You Following? REGULAR [id number] Information not available 07/12/2020 Which Illicit Or Recreational Drugs Have You Used? None [id number] Information not available 07/12/2020 Live Alone Or With Others? With Others With Spouse Information not available 08/12/2018 Marital Status [email or web address] Informatio n not available 08/12/2018 What Was The Date Of Your Most Recent Tobacco Screening? 09/24/2018 [id number] Information not available 07/12/2020 How Many Children Do You Have? 2 [id number] Information not available 07/12/2020 How Much Tobacco Do You Smoke? 3+ PPD [id number] Information not available 07/12/2020 General Stress Level Medium [email or web address] Information not available 08/12/2018 How Many Years Have You Smoked Tobacco? 45 [id number] Information not available 07/12/2020 Sex: Unknown Functional Status Question Answer Note LastModified by Organizat ion Details LastModified Time What is your level of alcohol consumption? Moderate 2-3 a day [id number] Information not available 07/12/2020 What is your occupation? retired [email or web address] Information not available 08/09/2018 What is your exercise level? None [id number] Information not available 07/12/2020 Mental Status None recorded. Family History Relationship Description Onset Age of this Age Resolved Age Notes LastModified by Organization Details LastModified Time Brother Atherosclero sis CAD nurbanski Not available 2017 15:09:04 Mother Diabetes mellitus nurbanski Not available 2017 15:09:16 Medical History Condition Response Hyperlipidemia Y Hypertension Y Depression Y COPD Y Gynecological HistoryNo gynecological history recorded. Obstetrics History GPAL:G 0 P 0 0 0 0 Past Encounters Encounter ID Performer Location Encounter Start Date Encounter Closed Date Diagnosis/Indication Diagnosis SNOMED-CT Code Diagnosis ICD10 Code Diagnosis IMO Codes Diagnosis Note [id number] MD [facility] Office [address] [address] 08/12/2018 14:23:00 08/12/2018 16:40:18 Congestive heart failure 48133895 I50.9 Discussed patient s diagnosis of heart failure with reduced ejection fraction , including pathophysi ology and prognosis. Discussed importance of controllin g blood pressure, exercising regularly, and minimizing alcohol, caffeine, and decongesta nts. Patient is on carvedilol . Patient is on an LEEANNE-I. Patient is on a diuretic. Advised patient to seek medical attention for chest pain, shortness of breath, weight gain, swelling, change in exercise capacity, fatigue, palpitatio ns, dizziness, syncope, or any other new or concerning symptoms. Patient was advised to eat a low-sodium diet (2 grams sodium or less daily), to take medication as prescribed , and to record a daily weight, reporting any 4 pound change in weight from baseline. Essential hypertension 95621899 I10 Patient's blood pressure is well-contr olled on present medical therapy. Patient is tolerating , without difficulty , the current medication s. I have not made changes to the current regimen. Patient is advised to maintain a blood pressure diary. Cont low Na diet. Tobacco de pendence syndrome 47889921 F17.200 SMOKING CESSATION ADVISED Dyspnea on exertion 6084 5006 R06.09 Patient presents with WADE which could be equivalent of angina especially in women.Give n the history, exam findings and intermedia te cardiac risk factors, I feel additional investigat ion is warranted. I have made arrangemen ts in the near future for a pharmacolo gic stress nuclear test due to reduced functional capacity or conduction abnormalit y. The procedure was discussed with the patient, and risks, benefits, and alternativ e options were explained. Appropriat e labwork has not been performed recently, therefore I have made arrangemen ts for further testing. I have asked the patient to curtail exercise and activities until our investigat ion is complete. [id number] MD [facility] Office [address] [place] [address] 09/24/2018 10:49:14 09/24/2018 11:34:01 Multiple nodules of lung 097824082 R91.8 consider pulmonary consult Tobacco de pendence syndrome 26452193 F17.200 SMOKING CESSATION ADVISED Congestive heart failure 94878223 I50.9 Discussed patient s diagnosis of heart failure with reduced ejection fraction and underlying non-ischem ic cardiomyop athy, including pathophysi ology and prognosis. Discussed importance of controllin g blood pressure, exercising regularly, and minimizing alcohol, caffeine, and decongesta nts. Patient pt stopped carvedilol . Patient is on an ELEANNE-I. Patient is on a diuretic. Advised patient to seek medical attention for chest pain, shortness of breath, weight gain, swelling, change in exercise capacity, fatigue, palpitatio ns, dizziness, syncope, or any other new or concerning symptoms. Patient was advised to eat a low-sodium diet (2 grams sodium or less daily), to take medication as prescribed , and to record a daily weight, reporting any 4 pound change in weight from baseline. Will repeat ECHO to reevaluate LV functionin 05/27 her ECHO showed LVEF 35-40%Nucl ear stress test negative for ischemia.P robably ETOH - induced CM. Chronic ob structive pulmonary disease 33801252 J44.9 Harmful pa ttern of use of alcohol 75713436 F10.10 advised to stop Essential hypertension 05945787 I10 Patient's blood pressure is well-contr olled on present medical therapy. Patient is tolerating , without difficulty , the current medication s. I have not made changes to the current regimen. Patient is advised to maintain a blood pressure diary. Cont low Na diet. [id number] MD [facility] Office [address] [place] [address] 10/29/2018 11:26:53 10/29/2018 12:38:13 Multiple nodules of lung 719191704 R91.8 consider pulmonary consult Tobacco de pendence syndrome 50175943 F17.200 SMOKING CESSATION ADVISED Congestive heart failure 33912594 I50.9 Discussed patient s diagnosis of heart failure with reduced ejection fraction and underlying non-ischem ic cardiomyop athy, including pathophysi ology and prognosis. Discussed importance of controllin g blood pressure, exercising regularly, and minimizing alcohol, caffeine, and decongesta nts. Patient pt stopped carvedilol . Patient is on an LEEANNE-I. Patient is on a diuretic. Advised patient to seek medical attention for chest pain, shortness of breath, weight gain, swelling, change in exercise capacity, fatigue, palpitatio ns, dizziness, syncope, or any other new or concerning symptoms. Patient was advised to eat a low-sodium diet (2 grams sodium or less daily), to take medication as prescribed , and to record a daily weight, reporting any 4 pound change in weight from baseline. Will repeat ECHO to reevaluate LV functionin 05/27 her ECHO showed LVEF 35-40%Nucl ear stress test negative for ischemia.r epeated echo improved LV function 45-50%add ToprolProb ably ETOH - induced CM. Chronic ob structive pulmonary disease 35706230 J44.9 Harmful pa ttern of use of alcohol 27111234 F10.10 advised to stop Essential hypertension 54526205 I10 Patient's blood pressure is well-contr olled on present medical therapy. Patient is tolerating , without difficulty , the current medication s. I have not made changes to the current regimen. Patient is advised to maintain a blood pressure diary. Cont low Na diet. Dyspnea on exertion 6084 5006 R06.09 stress test negativeco nt medical management and risk factor modificati on Health Concerns Section Related Observation LastModified by Organization Detai ls LastModified Time None Recorded Concern Status LastModified by Organization Details LastModified Time None Recorded Advance Directives Directive None Recorded Payers Insurance Date Sequence Insurance Name Policy Number Policy Muñoz Covered Member ID Muñoz Member ID Guarantor Name 03/26/2025 1 [employer] (MEDICARE REPLACEMENT/ ADVANTAGE - PPO) Penny L [facility] [id number] Penny Vice 03/26/2025 1 [employer] (MEDICARE REPLACEMENT/ ADVANTAGE - HMO) Penny L [facility] [id number] [facility] 03/26/2025 1 [place] Penny [facility] [id number] Penny Vice Notes Date Note Type Note Provider Name and Address Organization Details Recorded Time 08/12/2018 text/html 08/12/18 CC : Shortness of breath fu 67 years-old Female with h/o Hypertension , Asthma, COPD , Anxiety , and depression is here for follow up . She was in the hospital in 05/17/18 because of acute respiratory failure with elevated troponin and COPD exacerbation .her ECHO showed decreased LV systolic function. she states that generally feels fine. Still smokes and drinks ETOH.Occasionally has mild LE edema. Was started on Lisinopril per her PC but she takes it only when her BP is elevated. Denies any cardiac problems. Had stress test long time ago. BP usually runs 140/80 No known history of coronary artery disease. No history of previous myocardial infarction. No history of heart failure. No known valvular heart disease. No known arrhythmia. Patient reports feeling well overall. Patient is active, but is not exercising regularly. No chest pain. No arm pain. No neck pain. No nausea and vomiting. No diaphoresis. No shortness of breath at rest. Dyspnea on exertion reported. No fatigue.No orthopnea. No PND. Leg swelling reported. No palpitation. No dizziness. No syncope . No pre-syncope. No claudication. No major bleeding events. No side effects from medications. Complete ROS negative except as stated in the HPI and ROS. Results from this visit, or from the past: 05/19/18: na 133, K 3.5, CR 0.9, GFR 66, BNP 1248, MG 2.2 LIPIDS (05/16/18): TC 161, HDL 71, LDL 64, TG 130 CT CHEST (05/17/18): no evidence of pulmonary embolism. moderate pulmonary emphysema. few pulmonary nodules. moderate aortic atherosclerosis. mild coronary artery calcifications. ECHO (05/17/18): moderate lv systolic dysfuncton LVEF 35-40%. DIASTOLIC DYSFUNCTION EKG (05/17/18, ): NSR, IRBBB, POOR R PROGRESSION, NSST CHANGES Jus Quinones [facility] 08/12/2018 15:54:11 09/24/2018 text/html CC : Shortness of breath fu 67 years-old Female with h/o Hypertension , Asthma, COPD , Anxiety , and depression is here for follow up . Pt had diagnostic tests and today presents for review of results. She was in the hospital in 05/17/18 because of acute respiratory failure with elevated troponin and COPD exacerbation .her ECHO showed decreased LV systolic function. she states that generally feels fine. Still smokes and drinks ETOH.Occasionally has mild LE edema. Was started on Lisinopril per her PC but she takes it only when her BP is elevated. Denies any cardiac problems. Had stress test long time ago. BP usually runs 140/80 No known history of coronary artery disease. No history of previous myocardial infarction. No history of heart failure. No known valvular heart disease. No known arrhythmia. Patient reports feeling well overall. Patient is active, but is not exercising regularly. No chest pain. No arm pain. No neck pain. No nausea and vomiting. No diaphoresis. No shortness of breath at rest. Dyspnea on exertion reported. No fatigue.No orthopnea. No PND. Leg swelling reported. No palpitation. No dizziness. No syncope . No pre-syncope. No claudication. No major bleeding events. No side effects from medications. Complete ROS negative except as stated in the HPI and ROS. Results from this visit, or from the past: 05/19/18: na 133, K 3.5, CR 0.9, GFR 66, BNP 1248, MG 2.2 heparin anti-xa, plasma 05-19-2018 05/19/18: FACTOR XA HEPARIN 0.44 Attachment availableCB w/ diff 05-17-2018 05/17/18: HB 15.2, HT 45.3factor X activity, plasma [id number] (05/16/18): TC 161, HDL 71, LDL 64, TG 130 CT, angiogram, chest, w/wo contrast 05-17-2018 05/17/18 CTA CHEST: No evidence of pulmonary embolism or pneumonia. Moderate pulmonary emphysema. Few 4mm right pulmonary nodules. The patient is low risk forCT CHEST (05/17/18): no evidence of pulmonary embolism. moderate pulmonary emphysema. few pulmonary nodules. moderate aortic atherosclerosis. mild coronary artery calcifications. ECHO (05/17/18): moderate lv systolic dysfuncton LVEF 35-40%. DIASTOLIC DYSFUNCTION EKG (05/17/18, ): NSR, IRBBB, POOR R PROGRESSION, NSST CHANGESXR, chest 05-16-2018 05/16/18 CHEST 1 VIEW: No acute cardiopulmonary disease. Jus Quinones [facility] 09/24/2018 11:42:20 10/29/2018 text/html 10/29/18 CC : Shortness of breath fu 68 years-old Female with h/o Hypertension , Asthma, COPD , Anxiety , and depression is here for follow up . Pt had diagnostic tests and today presents for review of results.Had ECHO done in 09/30/18 showed EF 45-50% , LV mild global hypokinesis.She was in the hospital in 05/17/18 because of acute respiratory failure with elevated troponin and COPD exacerbation .her ECHO showed decreased LV systolic function. she states that generally feels fine. Still smokes and drinks ETOH.Occasionally has mild LE edema. Was started on Lisinopril per her PC but she takes it only when her BP is elevated. Denies any cardiac problems. Had stress test long time ago. BP usually runs 140/80 No known history of coronary artery disease. No history of previous myocardial infarction. No history of heart failure. No known valvular heart disease. No known arrhythmia. Patient reports feeling well overall. Patient is active, but is not exercising regularly. No chest pain. No arm pain. No neck pain. No nausea and vomiting. No diaphoresis. No shortness of breath at rest. Dyspnea on exertion reported. No fatigue.No orthopnea. No PND. Leg swelling reported. No palpitation. No dizziness. No syncope . No pre-syncope. No claudication. No major bleeding events. No side effects from medications. Complete ROS negative except as stated in the HPI and ROS. Results from this visit, or from the past:09/12/18: NA 141 ,K 4.3, CL 106 ,CO2 28 , GLU 99, BUN 14, CR 0.98 ,AST 17 ,IZD365: na 133, K 3.5, CR 0.9, GFR 66, BNP 1248, MG 2.209: HB 15.2, HT 45.309: TC 161 ,TG 130 ,HDL 71 ,LDL 64,heparin anti-xa, plasma 05-19-2018 05/19/18: FACTOR XA HEPARIN 0.44 CBC w/ diff 05-17-2018 05/17/18: HB 15.2, HT 45.3factor X activity, plasma [id number] (05/16/18): TC 161, HDL 71, LDL 64, TG 130 EKG: CT, angiogram, chest, w/wo contrast 05-17-2018 05/17/18 CTA CHEST: No evidence of pulmonary embolism or pneumonia. Moderate pulmonary emphysema. Few 4mm right pulmonary nodules. The patient is low risk forCT CHEST (05/17/18): no evidence of pulmonary embolism. moderate pulmonary emphysema. few pulmonary nodules. moderate aortic atherosclerosis. mild coronary artery calcifications.ECHO: 09/30/18 ECHO: LV chamber is moderately dilated. LV wall thickness is normal. There is mild global hypokinesis. The estimated left ventricle ejection fraction is 45-50%(abnormal). ECHO (05/17/18): moderate lv systolic dysfuncton LVEF 35-40%. DIASTOLIC DYSFUNCTION EKG (05/17/18, ): NSR, IRBBB, POOR R PROGRESSION, NSST CHANGESXR, chest 05-16-2018 05/16/18 CHEST 1 VIEW: No acute cardiopulmonary disease.STRESS TEST: 08/29/18 Lexiscan: Normal LV function. No reversible defects. Jus birch [place] [facility] 10/29/2018 12:42:58 OBGyn Episode No OBEpisode recorded.
--- OUTSIDE RECORDS SUMMARY | 2025-07-21 13:24 | XMS_ITS | Clinical Summary ---
Author Organization [facility] Address [address] [place] [address] Care Team Providers Care Cotton Buyer Name Role Phone Pk Melendez MD Primary Care Provider [phone] Allergies Active Allergy Reactions Criticality Noted Date Comments Penicillins Angioedema High 07/11/2012 Medications ALPRAZolam (XANAX) 1 mg Oral tablet Take 1 mg by mouth nightly as needed. Active Social History Tobacco Use Types Packs/Day Years Used Date Smoking Tobacco: Every Day Alcohol Use Standard Drinks/Week Comments No 0 (1 standard drink = 0.6 oz pur e alcohol) Comments Unknown Sex and Gender Information Value Date Recorded Sex Assigned at Not on file Legal Sex Female 6:08 AM [employer] Gender Identity Not on file Sexual Orientation Not on file Occupation Industry Job Start Date Job End Date Not on file Not on file Not on file Not on file Last Filed Vital Signs Vital Sign Reading Time Taken Comments Blood Pressure 123/64 07/11/2012 7:30 PM CDT Pulse 82 07/11/2012 6:52 PM CDT Temperature 36.2 C (97.2 F) 07/11/2012 5:50 PM CDT Respiratory Rate 16 07/11/2012 6:52 PM CDT Oxygen Saturation 94% 07/11/2012 7:30 PM CDT Inhaled Oxygen Concentration - - Weight 53.1 kg (117 lb) 07/11/2012 5:54 PM CDT Height - - Body Mass Index - - Plan of Treatment Health Maintenance Due Date Last Done Comments DTAP/TDAP/TD VACCINES (1 - Tdap) 1968 PNEUMOCOCCAL VACCINE 50+ YEARS (1 of 2 - PCV) 09/29/18 69 COLORECTAL SCREENING 1994 Colorectal Cancer Screening 1994 FIT-DNA Q 3 years 1994 FIT/FOBT Q 1 year 1994 Flex Sig/CT Colonography Q 5 years 1994 ZOSTER VACCINE (1 of 2) 1999 OSTEOPOROSIS SCREENING 2014 RSV VACCINE (60+ or ) (1 - 1-dose 75+ series) 2024 INFLUENZA VACCINE (#1) 2025 Insurance [employer] PPO [id number] Care Teams Cotton Buyer Relationship Specialty Start Date End Date Pk Melendez MD [address] [id number] PCP - General Internal Medicine 07/11/12
== END 2025-07-21 12:02 | disposition home or self-care (01) ==
LOC: ANHSURGERY 12:04
PROVIDERS: PCP Internal Medicine; Visit Provider Surgery
DX: I10 Essential (primary) hypertension (principal)
CPT/HCPCS: 93005

== ENCOUNTER 2025-07-27 02:09 | Day surgery (SDC) | payer MEDICARE, SELFPAY ==
[2025-07-19 13:33] VITALS: BMI 18.9
--- NOTE | 2025-07-19 14:00 | PC.NURSE ---
Addendum entered by Shannon Mccloud RN 07/19/25 14:13: CLARIFICATION- NO FOOD OR DRINKS AFTER MIDNIGHT PRIOR TO SURGERY ON 07/27/25. PT RELAYS UNDERSTANDING. Original Note: [facility] has started construction of its new state of the art ER which will open Spring 2026. With this, we anticipate parking may be a challenge for some our surgical patients and families. Parking spaces are limited but are available for all Surgical, obstetrics, and ER patients sharing this lot. If you arrive and find you are having a hard time finding a parking space, please note that we understand the challenges, please drive around the hospital and park near Hospital Entrance 1. When you enter this entrance, you can ask a volunteer to direct or take you back to the surgical waiting area to check in. We appreciate everyone?s understanding of these expected challenges while we build for your future. Report to the Outpatient Waiting Room, entrance under the green pavilion located off [facility], at time ___9:00AM___ on date ___07/27/25__. Planned Procedure Time: __11:00AM .? Time changes happen often and if your time is changed the preop area will call you the afternoon before. - You and your visitor will be asked to self-screen and do not enter if you have any COVID symptoms. Please call surgeon if you need to reschedule. - A mask is optional within the hospital at this time. Patients may have clear liquids (water, carbonated beverages, clear teas, apple juice) until 3 hours prior to surgery (8:00AM) with a maximum of 20 ounces. - No food from midnight until time of surgery and no smoking, or chewing tobacco (or any form of nicotine). No chewing gum, candy or mints. Take only the following medications with a SIP of water on the morning of surgery: __DUONEB NEBULIZER. DO NOT STOP ANY OF YOUR OTHER PRESCRIPTION MEDICATIONS PRIOR TO SURGERY EXCEPT THE FOLLOWING Hold all vitamins and supplements for 3 days per anesthesiologist. LAST DOSE 07/23/25 Please no make-up, nail turkish, hairspray, perfume, deodorant, or body powder the day of surgery.? No jewelry (including any body piercings) or valuables the day of surgery, leave them at home.? Please take a shower or bath the night before, or the morning of, surgery with an antibacterial soap.? Wear comfortable, loose fitting clothing.? - Jewelry must be removed prior to entering the operating room.? Rings and piercings that are not removed may be cut off. - The hospital will not accept responsibility for valuables.? - Please leave all valuables, including medications, at home the day of surgery. If you are going home after surgery, a licensed delivery driver assistant must drive you home.? - NO public transportation without another adult if you receive anesthesia. - We recommend that an adult stay with you for 24 hours following discharge. - We also recommend that you do not drive, make important decision, drink alcoholic beverages, or take any drugs that were not prescribed by your health care provider for at least 24 hours after your discharge time. Follow any additional instructions given to you from your surgeon. Telephone instructions given to ___PATIENT and asked if any additional questions and then verbalized understanding. Patient advised to call surgeon office or pre surgery nurse liaison [phone] if any additional questions.
[2025-07-27] VITALS (9 sets, daily range): BP systolic 111–156; BP diastolic 49–90; PULSE 46–92; RESP 10–20; TEMP 36.1–36.8; O2SAT 95–100
[2025-07-27] MEDS: ACETAMINOPHEN 500 MG TABLET 1000 MG PO (09:22)
[2025-07-27] MEDS: LACTATED RINGERS 1,000 ML 30 ML IV CONT (09:25)
[2025-07-27] MEDS: KETOROLAC 15 MG/ML VIAL (*BKC) IV PUSH (09:30)
--- NOTE | 2025-07-27 09:48 | WPDANESEPPF ---
Anes - Initial Pre Proc Eval Procedure: Operation Date: 07/27/25 11:00 Proposed Procedures p Rectal Examination Under Anesthesia, Possible Lateral Internal Sphincterotomy, Possible Internal / External Hemorrhoidectomy - Dmitri Lawson DO Date/Time: 07/27/25 09:48 Surgeon: Dmitri Lawson DO Pre Op Diagnosis: Rectal Pain Patient Data Age: 74 Gender: F Height: 1.63 m Weight: 50.2 kg Last Vital Signs Temp 36.8 C 07/27/25 08:55 Pulse 92 07/27/25 08:55 Resp 20 07/27/25 08:55 BP 126/71 07/27/25 08:55 Pulse Ox 95 07/27/25 08:55 O2 Del Method Room Air 07/27/25 08:55 Allergies Allergy/AdvReac Type Severity Reaction Status Date / Time Penicillins Allergy Mild Hives Verified 07/27/25 09:47 Home Medications ?Medication ?Instructions ?Recorded ?Confirmed ?Type aspirin 81 mg tablet 81 mg PO DAILY 07/16/25 07/27/25 History calcium carbonate (Calcium 600) 600 mg PO DAILY 07/16/25 07/27/25 History hydrocortisone 2.5 % topical cream 1 applic topical BID PRN skin 07/16/25 07/19/25 History irritation hydroxyzine pamoate 25 mg capsule 25 mg PO BID PRN anxiety 07/16/25 07/27/25 History (Vistaril) lisinopril 10 mg tablet 10 mg PO DAILY 07/16/25 07/27/25 History cholecalciferol (vitamin D3) 50 2,000 unit PO DAILY 07/19/25 07/27/25 History mcg (2,000 unit) capsule ipratropium 0.5 mg-albuterol 3 mg 3 ml inhalation QID 07/19/25 07/19/25 History (2.5 mg base)/3 mL nebulization soln Patient hx anesthesia problems: none Family hx anesthesia problems: none Results Review: All pre-operative results and documents have been reviewed as part of the pre-operative evaluation. [facility] Past Medical History Medical History Restless leg syndrome Osteoarthritis Hypertension Acute depression COPD (chronic obstructive pulmonary disease) Congestive heart failure Anxiety Surgical History Surgical History Hip fracture Hip fracture surgery Cataract Cataract surgery on both eyes Family History Family History Mother Heart disease Father Parkinsonism Unknown Breast cancer Social History Social History Smoking status: Current every day smoker Tobacco type: cigarettes Alcohol intake: current Anes - Eval Final PreProcedure Day of Procedure 07/27/25 09:48 Patient weight: thin Heart: regular rate and rhythm Lungs: clear to auscultation Airway: Mallampati scale class II Neurological: alert and oriented Last oral intake: >/= 8 hours ASA classification: III Emergent: no Anesthetic plan: proceed Anesthesia type and monitoring: general LMA and standard monitoring Results Review: All pre-operative results and documents have been reviewed as part of the pre-operative evaluation. Informed Consent: The patient's anesthetic plan and its attendant risks and benefits were discussed with the patient/family/POA. Questions were solicited and answers provided to the satisfaction of the patient/family/POA.
--- NOTE | 2025-07-27 10:40 | WPDHPUPDATE1 ---
History and Physical Update Update Date/Time: 07/27/25 10:40 History and Physical has been reviewed, including an updated exam of the patient. There are NO changes in the patient's condition. Risks, benefits, and alternatives have been discussed and questions answered. Patient agrees to proceed with procedure.
[2025-07-27] MEDS: ceFAZolin 2 GM in SODIUM CHLORIDE 0.9% IV 50 ML 100 ML IVPB (11:06)
[2025-07-27] MEDS: BUPivacaine HCL 0.5% 10 ML AMP 30 ML INFILTRATE (11:36)
--- NOTE | 2025-07-27 11:43 | S_PTH ---
PATIENT: Penny Vargas LOC: [facility] U#:[id number] AGE/SX: 74/F ROOM: RE07/27/[address]: Dmitri Lawson DO : 1950 BED: DIS: 07/27/2025 SPEC #: [id number] RECD: 07/27/25 12:13 STATUS: NICOLÁS REQ #: [id number] LOR: 07/27/25 11:[address]: Dmitri Lawson DEPT: [facility] Surgical RECD BY: Shima Adrian ENTERED: 07/27/25 12:13 SP TYPE: Surgical OTHR DR: Pk Melendez, Tissues: A - Hemorroid Procedures: Hematoxylin and Eosin Stain Gross and Microscopic Level 3
--- NOTE | 2025-07-27 12:58 | P.OP_ITS ---
Procedure Note - Detailed Date of Procedure 07/27/25 Pre-op Diagnosis Rectal Pain Post-op Diagnosis Other (Internal and external bleeding hemorrhoids) Procedure Performed Rectal exam under anesthesia, internal and external hemorrhoidectomy x1 column, excision residual hemorrhoid skin tag Surgeon Dmitri Lawson, DO Anesthesia General and Local (0.5% bupivacaine with epinephrine) Indications This is a 74-year-old woman who presented with rectal pain and bleeding. She had been having symptoms for the past month. She was experiencing significant tenderness on examination in the office therefore could not get a full exam to determine what the cause was. Discussed treatment options with the patient and decision was made to proceed with rectal exam under anesthesia, possible lateral internal sphincterotomy, possible hemorrhoidectomy. Findings Rectal exam under anesthesia was performed. The patient was found to have a slightly erythematous and engorged internal hemorrhoid prolapsing in the anterior midline location with some external hemorrhoid skin tag and enlarged tissue accompanying it. She also had a small posterior midline residual hemorrhoid skin tag. Internal and external hemorrhoidectomy was performed the anterior midline location and this was sent to the lab for pathology. The small posterior midline residual hemorrhoid skin tag was excised and discarded. No other coexisting pathology was identified. Description of Procedure Procedure as well as risks, benefits, and alternatives were discussed with the patient. Written consent was obtained and placed in chart prior to proce dure. Patient was brought back to surgical suite. She was placed supine on his hospital stretcher. Time-out was done to confirm patient and procedure. She was then intubated by the Anesthesia Department. She was then repositioned into prone jeyson-knife position. Her perirectal area was prepped and draped in sterile fashion using Betadine prep. Digital rectal exam was initially performed. A Hill-Delcid anoscope was then inserted and the anal rectal canal was inspected. 0.5% bupivacaine with epinephrine was infiltrated locally around the perianal skin. Hemorrhoids were identified in the anterior midline position. A Fansler anoscope was then inserted. The apex of the internal hemorrhoid bundle in the anterior midline location was ligated initially using a 2 0 chromic [id number] suture. A triangular incision was then made on the anoderm including the external hemorrhoid using a 15 blade scalpel. The hemorrhoid tissue was carefully lifted free from the sphincter muscle using sharp dissection with a 15 blade scalpel. Electrocautery was then used for hemostasis. A curved Peon clamp was then placed across the hemorrhoid bundle and the hemorrhoid tissue was cut away using Metzenbaum scissors. The 2 0 chromic suture was then run across the rectal mucosa down to the anal verge across the clamp. The suture was then run back proximally to the apex stitch with running locking sutures and the stitch was then tied down in place. The area was then irrigated with sterile saline, and hemostasis along the anoderm was achieved with electrocautery. The anoderm was then reapproximated using 3 0 chromic simple interrupted sutures. The Southold-Delcid anoscope was then reinserted and the anorectal canal was carefully inspected 1 more time circumferentially. There was a small posterior midline residual hemorrhoid skin tag. This was excised with an elliptical incision with a 15 blade scalpel. Hemostasis was achieved with electrocautery. The skin edges were then reapproximated using 3-0 chromic simple interrupted sutures. One final inspection was made around the anal rectal canal. No other abnormalities were identified, and hemostasis appeared adequate. Gelfoam gauze was then inserted into the anal canal. Fluff gauze, ABD pad, and mesh panties were applied. The patient was then awakened from anesthesia, extubated, and transferred to recovery. Estimated Blood Loss 10 Pathology Yes (Internal and external hemorrhoid) Complications No immediate complications Condition Stable Disposition Same day [facility] Billing Surgery - Charge Forward: Surgery Billing
== END 2025-07-27 13:55 | disposition home or self-care (01) ==
PROVIDERS: PCP Internal Medicine; Visit Provider Surgery
PROC: (CPT 46255; principal; 2025-07-27 11:00)
DX: K64.8 Other hemorrhoids (principal); K64.4 Residual hemorrhoidal skin tags; F17.210 Nicotine dependence, cigarettes, uncomplicated
CPT/HCPCS: 46255; 88304; J0690; A9270; J1885; J2003; J2704; J3010; J7120